=== PATIENT | female | born 2000 ===

== ENCOUNTER 2018-06-05 15:36 | Emergency (ER) | payer BC ==
[2018-06-05 15:52] VITALS: BP 127/79; PULSE 77; RESP 18; TEMP 98.2; O2SAT 100
--- NOTE | 2018-06-05 16:25 | C.PDOC ---
History Of Present Illness 18 y/o female presents to the ED for evaluation of persistent generalized body rash, present for 3 months. Patient saw PMD for same complaint, noted no improvement after applying ammonium lactate cream and taking PO zyrtec. Lesions remain unchanged, no increase in number or size. + Itchiness. Otherwise patient denies any discharge, fever, chills, or other symptoms. No known sick contacts. No recent travel. Time Seen by Provider: 06/05/18 16:12 Chief Complaint (Nursing): Abnormal Skin Integrity History Per: Patient History/Exam Limitations: no limitations Onset/Duration Of Symptoms: Days Current Symptoms Are (Timing): Still Present Quality Of Symptoms: Itching Past Medical History Reviewed: Historical Data, Nursing Documentation, Vital Signs Vital Signs: Last Vital Signs Temp 98.2 F 06/05/18 15:50 Pulse 77 06/05/18 15:50 Resp 18 06/05/18 15:50 BP 127/79 06/05/18 15:50 Pulse Ox 100 06/05/18 15:50 - Medical History PMH: No Chronic Diseases Surgical History: No Surg Hx Family History: States: No Known Family Hx - Social History Hx Alcohol Use: No Hx Substance Use: No Review Of Systems Except As Marked, All Systems Reviewed And Found Negative. Constitutional: Negative for: Fever, Chills Respiratory: Negative for: Cough, Shortness of Breath Gastrointestinal: Negative for: Nausea, Vomiting Skin: Positive for: Rash, Other (+ Itchiness) Neurological: Negative for: Weakness, Numbness Physical Exam - Physical Exam Appears: Non-toxic, No Acute Distress Skin: Warm, Dry, Rash (Occasional scattered punctate macular lesions, no discharge, no tenderness) Head: Normacephalic Eye(s): bilateral: Normal Inspection Respiratory: No Accessory Muscle Use, Other (NARD) Extremity: Bilateral: Atraumatic, Normal ROM Pulses: Left Radial: Normal, Right Radial: Normal Neurological/Psych: Oriented x3 ED Course And Treatment O2 Sat by Pulse Oximetry: 100 (RA) Pulse Ox Interpretation: Normal Medical Decision Making Medical Decision Making: Impression: Dermatitis Plan: Patient will be discharged home with RX for Bactrim. Advised of the importance of follow up with dermatology. Disposition Counseled Patient/Family Regarding: Diagnosis, Need For Followup, Rx Given - Disposition Referrals: [facility] [Outside] [facility] [Outside] [facility] [Other] Disposition: HOME/ ROUTINE Disposition Time: 16:25 Condition: GOOD Prescriptions: Sulfamethoxazole/Trimethoprim [Bactrim DS 800 mg-160 mg] 1 tab PO BID #14 tab Instructions: Skin Rash (DC) Forms: [employer] (Kinyarwanda) Print Language: ITALIAN - POA Present On Arrival: None - Clinical Impression Clinical Impression: Chronic dermatitis - Scribe Statement The provider has reviewed the documentation as recorded by the Abdullahi Tejeda Provider Attestation: All medical record entries made by the Abdullahi were at my direction and personally dictated by me. I have reviewed the chart and agree that the record accurately reflects my personal performance of the history, physical exam, medical decision making, and the department course for this patient. I have also personally directed, reviewed, and agree with the discharge instructions and disposition.
== END 2018-06-05 16:37 | disposition home or self-care (01) ==
LOC: C.ER 15:36
DX: L30.9 Dermatitis, unspecified (principal)

== ENCOUNTER 2018-09-20 20:39 | Emergency (ER) | payer BC ==
[2018-09-20 20:46] VITALS: BP 114/75; PULSE 70; RESP 14; TEMP 98; O2SAT 99
[2018-09-20 21:29] LABS: SQUAMOUS EPITHIAL 11 /hpf (0-5); URINE AMORPHOUS SEDIMENT MODERATE /ul (<OCC); URINE BACTERIA RARE (<OCC); URINE BILIRUBIN NEGATIVE (NEGATIVE); URINE BLOOD 3+ (NEGATIVE); URINE CLARITY Hazy (Clear); URINE COLOR Red (YELLOW); URINE GLUCOSE (UA) NORMAL (Normal); URINE LEUKOCYTE ESTERASE NEG Leu/uL (Negative); URINE PROTEIN 1+ mg/dL (NEGATIVE); URINE UROBILINOGEN NORMAL mg/dL (0.2-1.0)
[2018-09-20 21:30] LABS: HCG,QUALITATIVE URINE NEGATIVE (NEGATIVE)
[2018-09-20 21:33] LABS: BASO # 0.1 K/uL (0.0-0.2); BASO % 1.1 % (0.0-2.0); EOS # 0.1 K/uL (0.0-0.7); EOS % 1.6 % (0.0-4.0); HEMOGLOBIN 14.1 g/dL (11.0-16.0); LYMPH # 2.2 K/uL (1.0-4.3); MEAN CELL VOLUME 96.4 fL (81.0-99.0); MEAN CORPUSCULAR HEMOGLOBIN 33.5 pg (27.0-31.0); MEAN CORPUSCULAR HGB CONC 34.7 g/dL (33.0-37.0); MEAN PLATELET VOLUME 9.6 fL (7.2-11.7); MONO # 0.6 K/uL (0.0-0.8); MONO % 7.3 % (0.0-10.0); NEUT # 5.2 K/uL (1.8-7.0); NRBC % 0.1 % (0.0-2.0); RBC 4.21 Mil/uL (3.80-5.20); RED CELL DISTRIBUTION WIDTH 12.4 % (11.5-14.5); WHITE BLOOD COUNT 8.2 K/uL (4.8-10.8)
--- NOTE | 2018-09-20 21:35 | C.PDOC ---
History Of Present Illness 18 year old female, M 1, presents to the ED c/o pelvic cramping and vaginal spotting. Patient had positive test at home one week ago and wants it to be confirmed. Patient reports she is attempting to get . Dorota lees denies fever, chills, CP, SOB, back pain, rash, dysuria, hematuria. Time Seen by Provider: 09/20/18 20:58 Chief Complaint (Nursing): Abdominal Pain History Per: Patient History/Exam Limitations: no limitations Onset/Duration Of Symptoms: Days Current Symptoms Are (Timing): Still Present Radiation Of Pain To:: None Quality Of Discomfort: Cramping Associated Symptoms: denies: Nausea, Vomiting, Diarrhea, Urinary Symptoms Recent travel outside of the [place]: No Additional History Per: Patient Abnormal Vaginal Bleeding: Yes Last Menstral Period: 09/04/18 : 1 Para: 0 Miscarriage: 1 Past Medical History Reviewed: Historical Data, Nursing Documentation, Vital Signs Vital Signs: Last Vital Signs Temp 98 F 09/20/18 20:44 Pulse 70 09/20/18 20:44 Resp 14 09/20/18 20:44 BP 114/75 09/20/18 20:44 Pulse Ox 99 09/20/18 20:44 - Medical History PMH: No Chronic Diseases Surgical History: No Surg Hx Family History: States: Unknown Family Hx - Social History Hx Alcohol Use: No Hx Substance Use: No Review Of Systems Constitutional: Negative for: Fever, Chills Cardiovascular: Negative for: Chest Pain Respiratory: Negative for: Shortness of Breath Gastrointestinal: Positive for: Abdominal Pain. Negative for: Nausea, Vomiting Genitourinary: Positive for: Vaginal Bleeding. Negative for: Dysuria, Hematuria Musculoskeletal: Negative for: Back Pain Skin: Negative for: Rash Neurological: Negative for: Weakness, Numbness, Headache Physical Exam - Physical Exam Appears: Non-toxic, No Acute Distress, Other ( female) Skin: Normal Color, Warm, Dry Head: Atraumatic, Normacephalic Eye(s): bilateral: Normal Inspection Neck: Normal ROM, Supple Chest: Symmetrical Cardiovascular: Rhythm Regular Respiratory: Normal Breath Sounds, No Rales, No Rhonchi, No Wheezing Gastrointestinal/Abdominal: Soft, No Tenderness, No Guarding, No Rebound Back: No CVA Tenderness Extremity: Normal ROM, No Tenderness, No Swelling Neurological/Psych: Oriented x3, Normal Speech, Normal Cognition Gait: Steady ED Course And Treatment - Laboratory Results Result Diagrams: 09/20/18 21:29 09/20/18 21:29 Lab Results: Urine Color Red (YELLOW) 09/20/18 21:10 Urine Clarity Hazy (Clear) 09/20/18 21:10 Urine pH 8.0 (5.0-8.0) 09/20/18 21:10 Ur Specific [place] 1.019 (1.003-1.030) 09/20/18 21:10 Urine Protein 1+ mg/dL (NEGATIVE) H 09/20/18 21:10 Urine Glucose (UA) Normal mg/dL (Normal) 09/20/18 21:10 Urine Ketones Negative mg/dL (NEGATIVE) 09/20/18 21:10 Urine Blood 3+ (NEGATIVE) H 09/20/18 21:10 Urine Nitrate Negative (NEGATIVE) 09/20/18 21:10 Urine Bilirubin Negative (NEGATIVE) 09/20/18 21:10 Urine Urobilinogen Normal mg/dL (0.2-1.0) 09/20/18 21:10 Ur Leukocyte Esterase Neg [place]/uL (Negative) 09/20/18 21:10 Urine RBC (Auto) 303 /hpf (0-3) H 09/20/18 21:10 Ur Squamous Epith Cells 11 /hpf (0-5) H 09/20/18 21:10 Amorphous Sediment Moderate /ul (<OCC) H 09/20/18 21:10 Urine Bacteria Rare (<OCC) 09/20/18 21:10 Urine HCG, Qual Negative (NEGATIVE) 09/20/18 21:10 Urine HCG, Qual Negative (NEGATIVE) 09/20/18 21:10 Urine POC: Negative O2 Sat by Pulse Oximetry: 99 (ON RA) Pulse Ox Interpretation: Normal Medical Decision Making Medical Decision Making: NOT menstrual cramps Disposition Doctor Will See Patient In The: Office Counseled Patient/Family Regarding: Studies Performed, Diagnosis - Disposition Referrals: [facility] [Outside] [facility] [Outside] [facility] [Outside] [facility] [Outside] Disposition: HOME/ ROUTINE Disposition Time: 21:35 Condition: GOOD Additional Instructions: sigue con [facility] para considerar metodos anti-conceptivos Prueba de embarasso NEGATIVO jessenia. Instructions: Tests Forms: [employer] (Ukrainian) Print Language: YI - Clinical Impression Clinical Impression: test negative - Scribe Statement The provider has reviewed the documentation as recorded by the Scribe Rober Mccoy All medical record entries made by the Scribe were at my direction and personally dictated by me. I have reviewed the chart and agree that the record accurately reflects my personal performance of the history, physical exam, me dical decision making, and the department course for this patient. I have also personally directed, reviewed, and agree with the discharge instructions and disposition.
[2018-09-20 21:46] LABS: ALB/GLOB RATIO 1.4 (1.0-2.1); ALBUMIN 4.1 g/dL (3.5-5.0); ALT/SGPT 17 U/L (9-52); AST/SGOT 20 U/L (14-36); BLOOD UREA NITROGEN 12 mg/dL (7-17); CALCIUM 9.2 mg/dl (8.6-10.4); GFR NON-AFRICAN AMERICAN > 60
== END 2018-09-20 21:41 | disposition home or self-care (01) ==
LOC: C.ER 20:39
DX: Z32.02 Encounter for pregnancy test, result negative (principal)